=== PATIENT | female | born 1940 | race Caucasian/White ===

== ENCOUNTER 2017-05-09 11:35 | Emergency (ER) | payer MEDICARE ==
[~2017-05-09] VITALS: Ht 160 cm; Wt 86.2 kg
[~2017-05-09 11:35] MED LIST: AZOPT10 ML OP; BETIMOL5 M2 OP; BRIMONIDINE TART5 ML BOTH EYES; LUMIGAN2.5 ML BOTH EYES
[2017-05-09 11:43] VITALS: BP 120/61
[2017-05-09] MEDS ORDERED: Bacitracin Oint UD TOPIC ONE (12:30)
[2017-05-09] MEDS ORDERED: Tetanus/Diptheria/Pertussis Vaccine 0.5ml Syr IM ONE (12:30)
[2017-05-09] MEDS ORDERED: AUGMENTIN 875-1 EAC1 ORAL (12:34)
[2017-05-09] MEDS ORDERED: IBUPROFEN600 MG ORAL (12:34)
--- NOTE | 2017-05-09 12:34 | Emergency Room Report ---
History of Present Illness General Chief Complaint: Laceration Source: Patient Present Illness HPI 77-year-old female patient presents to ER complaining of cat bite on her right wrist 2 days ago. Patient complains of pain at site of wound. Patient denies active bleeding or pus from wound. Patient reports mild swelling and reddness. Patient reports cleaning the wound with soap and water "repeatedly" over the past 2 days. Patient states she did not take any medications for pain; reports she ate a marijuana edible to alleviate her pain symptoms. Patient denies fever, nausea, vomiting, chest pain, SOB, rash. Patient does not know tetanus vaccination status. Allergies: Coded Allergies: No Known Allergies (Unverified , 12/08/15) Patient History Past Medical History: see triage record Pertinent Family History: none Social History: Reports: drug use Reviewed Nursing Documentation: PMH: Agreed, PSxH: Agreed Nursing Documentation-PMH Hx Cardiac Problems: Yes - murmur unspecified Hx Cancer: No Hx Neurological Problems: No Review of Systems All Other Systems: negative except mentioned in HPI Physical Exam Vital Signs Date Time Temp Pulse Resp B/P (MAP) Pulse Ox O2 Delivery O2 Flow Rate FiO2 05/09/17 11:43 97.9 84 20 120/61 100 Room Air Sp02 EP Interpretation: reviewed, normal General Appearance: no apparent distress, alert, GCS 15, non-toxic Head: normocephalic, atraumatic Eyes: bilateral eye normal inspection, bilateral eye PERRL ENT: hearing grossly normal, normal pharynx, no angioedema, normal voice Neck: full range of motion Respiratory: chest non-tender, lungs clear, normal breath sounds, no respiratory distress, speaking full sentences Cardiovascular #1: regular rate, rhythm Cardiovascular #2: 2+ radial (R), 2+ radial (L) Musculoskeletal: digits/nails normal, gait/station normal, normal range of motion, inflammation - mild erythema, swelling, other - pain with wrist extensio. NVI, tender Neurologic: alert, oriented x3, responsive, motor strength/tone normal, sensory intact, speech normal Psychiatric: judgement/insight normal, memory normal, mood/affect normal, no suicidal/homicidal ideation Skin: no rash, warm/dry, normal turgor, other - 1 puncture wound with dried pus along dorsum of wrist on radial side, abrasions - 3 1cm linear scratches along dorsum of wrist on radial side Medical Decision Making PA Attestation Dr. Castellon is my supervising physician with whom patient management has been discussed with. Diagnostic Impression: Primary Impression: Cat scratch of right wrist ER Course Pt presents to ED c/o cat bite. DDX considered but are not limited to animal bite, abrasion, cellulitis, contusion, fracture. VITALS Patient is afebrile ORDERS: none required at this time, diagnosis is clinical ED COURSE: Superficial wounds on right wrist, no active bleeding or draining. Wound clean, Bacitracin applied to wound and placed in sterile dressing. TDap provided to patient. Rx provided for Augmentin. Patient instructed to follow up with PCP for wound check in 2-3 days and complete full course of antibiotics. DISCHARGE: At this time pt is stable for d/c to home. Will provide with patient care instructions and any necessary prescriptions. Patient to take medication as instructed. Care plan and follow-up instructions provided. Patient questions asked and answered. ER precautions given. Patient instructed to return to ER immediately for any new or worsening of symptoms. Last Vital Signs Date Time Temp Pulse Resp B/P (MAP) Pulse Ox O2 Delivery O2 Flow Rate FiO2 05/09/17 11:43 97.9 84 20 120/61 100 Room Air Scripts Ibuprofen* (MOTRIN*) 600 Mg Tablet 600 MG ORAL Q8H Y for For Pain, #30 TAB 0 Refills Prov: Glenn Sepulveda 05/09/17 Amoxicillin/Potassium Clav 875-125* (AUGMENTIN 875-125 TABLET*) 1 Each Tablet 1 TAB ORAL TWICE A DAY for 7 Days, #14 TAB Prov: Glenn Sepulveda 05/09/17 Patient Instructions: Cat-Scratch Disease Additional Instructions: Followup with primary care provider in 3 -5 days for wound check. Take medications as directed. Patient questions asked and answered. ER precautions given, patient instructed to return to ER immediately for any new or worsening of symptoms including but not limited to fever. Glenn Sepulveda May 09, 2017 12:34
[2017-05-09 12:49] VITALS: BP 120/61
== END 2017-05-09 14:08 | disposition home or self-care (01) ==
LOC: EMR 12:10
DX: S60.811A Abrasion of right wrist, initial encounter (principal); W55.03XA Scratched by cat, initial encounter; Y92.9 Unspecified place or not applicable; Z23 Encounter for immunization
CPT/HCPCS: 90471; 90715; 99283

== ENCOUNTER 2018-01-10 11:31 | Emergency (ER) | payer MEDICARE ==
[~2018-01-10] VITALS: Ht 162.6 cm; Wt 47.6 kg
[~2018-01-10 11:31] MED LIST changes: +AUGMENTIN 875-1 EAC1 ORAL; +IBUPROFEN600 MG ORAL
[2018-01-10 11:45] VITALS: BP 137/87
[2018-01-10 12:50] LABS: BASOPHILS % (AUTO) 0.9 % (0.0-2.0); EOSINOPHILS % (AUTO) 1.6 % (0.0-3.0); HEMATOCRIT 46.3 % (37.0-47.0); HEMOGLOBIN 15.4 G/DL (12.0-16.0); LYMPHOCYTES % (AUTO) 21.5 % (20.0-45.0); MEAN CORPUSCULAR VOLUME 90 FL (80-99); MONOCYTES % (AUTO) 6.6 % (1.0-10.0); NEUTROPHILS % (AUTO) 69.4 % (45.0-75.0); PLATELET COUNT 253 K/UL (150-450); RED BLOOD COUNT 5.12 M/UL (4.20-5.40); RED CELL DISTRIBUTION WIDTH 12.4 % (11.6-14.8); WHITE BLOOD COUNT 12.1 K/UL (4.8-10.8)
[2018-01-10 13:03] LABS: ANION GAP 7 mmol/L (5-15); BLOOD UREA NITROGEN 23 mg/dL (7-18); CALCIUM 9.4 MG/DL (8.5-10.1); CARBON DIOXIDE 29 MMOL/L (21-32); CHLORIDE 106 MMOL/L (98-107); CREATININE 0.9 MG/DL (0.55-1.30); POTASSIUM 4.2 MMOL/L (3.5-5.1); SODIUM 142 MMOL/L (136-145)
[2018-01-10 13:08] LABS: ALANINE AMINOTRANSFERASE 26 U/L (12-78); ALBUMIN 3.5 G/DL (3.4-5.0); ALBUMIN/GLOBULIN RATIO 0.8 (1.0-2.7); ALKALINE PHOSPHATASE 84 U/L (46-116); ASPARTATE AMINO TRANSFERASE 22 U/L (15-37); BILIRUBIN,TOTAL 0.4 MG/DL (0.2-1.0)
--- NOTE | 2018-01-10 14:57 | Emergency Room Report ---
History of Present Illness General Chief Complaint: Pain Source: Patient Present Illness HPI This patient states she tripped and fell yesterday onto her left side. She states she has pain in her left buttock and left hip. She also has pain in her left ankle with swelling. She has been ambulating and bearing weight on both the hip and the ankle. She denies head injury or trauma. She has chest pain or short of breath. She denies abdominal pain. She has no other complaints. Allergies: Coded Allergies: No Known Allergies (Unverified , 12/08/15) Patient History Past Medical History: see triage record, HTN, CAD Social History: Denies: smoking, alcohol use, drug use Now: No Reviewed Nursing Documentation: PMH: Agreed; PSxH: Agreed Nursing Documentation-PMH Hx Cardiac Problems: Yes - murmur unspecified, CHF Hx Hypertension: Yes Hx Cancer: No Hx Neurological Problems: No Review of Systems All Other Systems: negative except mentioned in HPI Physical Exam Vital Signs Date Time Temp Pulse Resp B/P (MAP) Pulse Ox O2 Delivery O2 Flow Rate FiO2 01/10/18 11:41 98.7 60 20 128/65 98 Room Air 98.8 Sp02 EP Interpretation: reviewed, normal General Appearance: no apparent distress, alert, GCS 15, non-toxic Head: normocephalic, atraumatic Eyes: bilateral eye normal inspection, bilateral eye PERRL ENT: hearing grossly normal, normal pharynx, no angioedema, normal voice Neck: full range of motion, supple/symm/no masses Respiratory: chest non-tender, lungs clear, normal breath sounds, no respiratory distress, no retraction, no accessory muscle use, speaking full sentences Cardiovascular #1: regular rate, rhythm, no edema Gastrointestinal: normal bowel sounds, non tender, soft, non-distended, no guarding, no rebound Rectal: deferred Musculoskeletal: back normal, normal range of motion, other - Antalgic gait. Pain w/ ROM of L. hip. L. ankle swollen and TTP diffusely. Neurologic: alert, oriented x3, responsive, motor strength/tone normal, sensory intact, speech normal Psychiatric: judgement/insight normal, memory normal, mood/affect normal, no suicidal/homicidal ideation Skin: normal color, no rash, warm/dry, well hydrated Procedures Splinting Splinting : Consent: Verbal Location: L. ankle Pre-Made Type: aircast Pre-Proc Neuro Vasc Exam: normal Post-Proc Neuro Vasc Exam: normal Patient Tolerated: Well Complications: None Medical Decision Making Diagnostic Impression: Primary Impression: Contusion Additional Impression: Ankle sprain ER Course This patient has a buttock and left hip contusion. Also she has a left ankle sprain. She underwent basic labs to include CBC, CMP and these were unremarkable. She also underwent imaging of the left hip and left ankle. There is no evidence of fracture. Ultrasound of the left lower extremity and there is no evidence of DVT. Overall, the patient's evaluation is benign. Patient is instructed to follow-up closely with her primary care physician. The patient was given return precautions and follow up instructions. Laboratory Tests Test 01/10/18 12:17 White Blood Count 12.1 K/UL (4.8-10.8) H Red Blood Count 5.12 M/UL (4.20-5.40) Hemoglobin 15.4 G/DL (12.0-16.0) Hematocrit 46.3 % (37.0-47.0) Mean Corpuscular Volume 90 FL (80-99) Mean Corpuscular Hemoglobin 30.0 PG (27.0-31.0) Mean Corpuscular Hemoglobin Concent 33.2 G/DL (32.0-36.0) Red Cell Distribution Width 12.4 % (11.6-14.8) Platelet Count 253 K/UL (150-450) Mean Platelet Volume 7.6 FL (6.5-10.1) Neutrophils (%) (Auto) 69.4 % (45.0-75.0) Lymphocytes (%) (Auto) 21.5 % (20.0-45.0) Monocytes (%) (Auto) 6.6 % (1.0-10.0) Eosinophils (%) (Auto) 1.6 % (0.0-3.0) Basophils (%) (Auto) 0.9 % (0.0-2.0) Sodium Level 142 MMOL/L (136-145) Potassium Level 4.2 MMOL/L (3.5-5.1) Chloride Level 106 MMOL/L (98-107) Carbon Dioxide Level 29 MMOL/L (21-32) Anion Gap 7 mmol/L (5-15) Blood Urea Nitrogen 23 mg/dL (7-18) H Creatinine 0.9 MG/DL (0.55-1.30) Estimate Glomerular Filtration Rate mL/min (>60) Glucose Level 114 MG/DL (74-106) H Calcium Level 9.4 MG/DL (8.5-10.1) Total Bilirubin 0.4 MG/DL (0.2-1.0) Aspartate Amino Transferase (AST) 22 U/L (15-37) Alanine Aminotransferase (ALT) 26 U/L (12-78) Alkaline Phosphatase 84 U/L (46-116) Total Protein 8.0 G/DL (6.4-8.2) Albumin 3.5 G/DL (3.4-5.0) Globulin 4.5 g/dL Albumin/Globulin Ratio 0.8 (1.0-2.7) L Other X-Ray Diagnostic Results Other X-Ray Diagnostic Results : X-Ray ordered: L. hip, L. ankle xray # of Views/Limited Vs Complete: Complete Indication: Pain Interpretation: no fractures Impression: No acute disease Electronically Signed by: Moose CT/MRI/US Diagnostic Results CT/MRI/US Diagnostic Results : Imaging Test Ordered: US LLE: Impression No DVT Last Vital Signs Date Time Temp Pulse Resp B/P (MAP) Pulse Ox O2 Delivery O2 Flow Rate FiO2 01/10/18 11:45 97.9 60 16 137/87 95 Room Air 97.9 Status: improved Disposition: HOME, SELF-CARE Condition: Improved Referrals: NON PHYSICIAN (PCP) Renetta Mark DO Jan 10, 2018 14:57
[2018-01-10 15:06] VITALS: BP 138/87
--- NOTE | 2018-01-10 15:51 | Diagnostic Imaging Report ---
Indication: Left leg pain and swelling Technique: Grayscale and duplex images of the left lower extremity veins Comparison: none Findings: Grayscale and duplex images demonstrate no evidence of intraluminal thrombus. Normal phasic Doppler waveforms. Normal augmentation response and no evidence of valvular insufficiency Impression: Negative
--- NOTE | 2018-01-10 16:58 | Diagnostic Imaging Report ---
Indication: Trauma, pain Technique: 2 views of the hip Comparison: none Findings: Exam is limited due to patient body habitus. No definite acute fractures. No dislocations. Joint spaces are preserved Impression: No definite acute bony trauma
--- NOTE | 2018-01-10 17:00 | Diagnostic Imaging Report ---
Indication: Reason For Exam: TRAUMA Technique: 3 or 4 views of the left ankle Comparison: none Findings: No acute fractures. No dislocations. The joint spaces are preserved. The bones are osteoporotic. There is a small plantar spur Impression: No acute bony trauma
== END 2018-01-10 15:06 | disposition home or self-care (01) ==
LOC: EMR 13:32
DX: S70.02XA Contusion of left hip, initial encounter (principal); S30.0XXA Contusion of lower back and pelvis, initial encounter; S93.402A Sprain of unspecified ligament of left ankle, initial encounter; W01.0XXA Fall on same level from slipping, tripping and stumbling without subsequent striking against object, initial encounter; Y92.9 Unspecified place or not applicable; I11.0 Hypertensive heart disease with heart failure; I50.9 Heart failure, unspecified; I25.10 Atherosclerotic heart disease of native coronary artery without angina pectoris
CPT/HCPCS: 36415; 73502; 80053; 85025; 93971; 99284